=== PATIENT | male | born 1960 | race African-American/Black ===

== ENCOUNTER → 2018-07-06 | Outpatient (CLI) | payer MEDICARE, MEDICAID ==
[~2018-07-06] VITALS: Ht 172.7 cm; Wt 55.3 kg
[~2018-07-06] MED LIST: CALC500T30 PO; CYAN10002 IJ; CYANOCOBALAMIN (VITAMIN B-12) 1,000 MCG/ML VIAL IM ONE; HYDROCORTISONE SOD SUCC/PF 100 MG/2 ML VIAL. IV ONE; INFL100V IV; INFLIXIMAB IV ONE; NORMAL SALINE IV ONE; SERT100T PO; TRAZ-86 PO
[2018-07-06 09:39] VITALS: BP 103/66
[2018-07-06 10:16] VITALS: BP 107/69
[2018-07-06 10:34] VITALS: BP 99/59
== END | disposition home or self-care (01) ==
LOC: OPS 09:12
PROVIDERS: ATTEND Internal Medicine Gastroenterology
DX: K50.10 Crohn's disease of large intestine without complications (principal); E11.9 Type 2 diabetes mellitus without complications; Z79.82 Long term (current) use of aspirin
CPT/HCPCS: 96365; 96366; 96372; 96375; J1720; J1745; J3420; J7050; 96367; 96374; J7030

== ENCOUNTER → 2018-08-17 | Outpatient (CLI) | payer MEDICARE, MEDICAID ==
[~2018-08-17] VITALS: Ht 172.7 cm; Wt 55.3 kg
[2018-08-17 09:29] VITALS: BP 109/68
[2018-08-17 10:26] VITALS: BP 107/72
[2018-08-17 10:48] VITALS: BP 103/66
[2018-08-17 11:59] VITALS: BP 103/66
== END ==
LOC: OPS 09:02
PROVIDERS: ATTEND Internal Medicine Gastroenterology
DX: K50.10 Crohn's disease of large intestine without complications (principal); E11.9 Type 2 diabetes mellitus without complications; I77.810 Thoracic aortic ectasia; Z98.41 Cataract extraction status, right eye; Z79.82 Long term (current) use of aspirin; Z90.49 Acquired absence of other specified parts of digestive tract
CPT/HCPCS: 96365; 96366; 96372; 96375; J1720; J1745; J3420; J7050; 96374; J7030

== ENCOUNTER → 2018-10-11 | Outpatient (CLI) | payer MEDICARE, MEDICAID ==
[~2018-10-11] VITALS: Ht 172.7 cm; Wt 55.8 kg
[2018-10-11 11:58] VITALS: BP 96/62
[2018-10-11 12:54] VITALS: BP 109/74
[2018-10-11 13:10] VITALS: BP 120/70
== END | disposition home or self-care (01) ==
LOC: OPS 11:31
PROVIDERS: ATTEND Internal Medicine Gastroenterology
DX: K50.10 Crohn's disease of large intestine without complications (principal); E11.9 Type 2 diabetes mellitus without complications; Z79.82 Long term (current) use of aspirin; Z98.41 Cataract extraction status, right eye; Z90.49 Acquired absence of other specified parts of digestive tract
CPT/HCPCS: 96365; 96366; 96372; 96375; J1720; J1745; J3420; J7050; 96374; J7030

== ENCOUNTER → 2018-11-22 | Outpatient (CLI) | payer MEDICAID, MEDICARE ==
[~2018-11-22] VITALS: Ht 172.7 cm; Wt 55.8 kg
[~2018-11-22] MED LIST changes: -CYANOCOBALAMIN (VITAMIN B-12) 1,000 MCG/ML VIAL IM ONE; +CYANOCOBALAMIN (VITAMIN B-12) 1,000 MCG/ML VIAL IM SCH; -HYDROCORTISONE SOD SUCC/PF 100 MG/2 ML VIAL. IV ONE; +HYDROCORTISONE SOD SUCC/PF 250 MG/2 ML VIAL. IV ONE
[2018-11-22 10:09] VITALS: BP 105/69
[2018-11-22 12:29] VITALS: BP 106/69
--- NOTE | 2018-11-22 12:30 | NUR ---
SEE REMIC[employer] INFUSION RECORD FOR FREQUENT VS AND RATE CHANGES.
== END | disposition home or self-care (01) ==
LOC: OPS 09:50
PROVIDERS: ATTEND Internal Medicine Gastroenterology
DX: K50.10 Crohn's disease of large intestine without complications (principal); E11.9 Type 2 diabetes mellitus without complications; Z79.82 Long term (current) use of aspirin; Z98.41 Cataract extraction status, right eye; Z90.49 Acquired absence of other specified parts of digestive tract
CPT/HCPCS: 96365; 96366; 96372; J1745; J3420; J7050; 96374; J7030

== ENCOUNTER → 2019-01-03 | Outpatient (CLI) | payer MEDICAID, MEDICARE ==
[~2019-01-03] VITALS: Ht 172.7 cm; Wt 54.4 kg
[~2019-01-03] MED LIST changes: +CYANOCOBALAMIN (VITAMIN B-12) 1,000 MCG/ML VIAL IM ONE; -CYANOCOBALAMIN (VITAMIN B-12) 1,000 MCG/ML VIAL IM SCH
[2019-01-03 11:16] VITALS: BP 98/60
[2019-01-03 12:30] VITALS: BP 109/69
[2019-01-03 13:31] VITALS: BP 108/68
== END | disposition home or self-care (01) ==
LOC: OPS 10:55
PROVIDERS: ATTEND Internal Medicine Gastroenterology
DX: K50.818 Crohn's disease of both small and large intestine with other complication (principal); E11.9 Type 2 diabetes mellitus without complications; Z98.41 Cataract extraction status, right eye; Z90.49 Acquired absence of other specified parts of digestive tract; Z79.82 Long term (current) use of aspirin
CPT/HCPCS: 96365; 96372; 96375; J1745; J3420; J7050; 96366; J7030

== ENCOUNTER → 2019-02-14 | Outpatient (CLI) | payer MEDICARE, MEDICAID ==
[~2019-02-14] MED LIST changes: +HYDROCORTISONE SOD SUCC/PF 100 MG/2 ML VIAL. IV ONE; -HYDROCORTISONE SOD SUCC/PF 250 MG/2 ML VIAL. IV ONE
[2019-02-14 11:49] VITALS: BP 89/54
[2019-02-14 13:02] VITALS: BP 94/63
== END | disposition home or self-care (01) ==
LOC: OPS 10:08
PROVIDERS: ATTEND Internal Medicine Gastroenterology
DX: K50.818 Crohn's disease of both small and large intestine with other complication (principal); E11.9 Type 2 diabetes mellitus without complications; Z90.49 Acquired absence of other specified parts of digestive tract; Z79.82 Long term (current) use of aspirin; Z98.41 Cataract extraction status, right eye
CPT/HCPCS: 96365; 96366; 96372; 96375; J1720; J1745; J3420; J7050; 96374; J7030

== ENCOUNTER → 2019-03-28 | Outpatient (CLI) | payer MEDICARE, MEDICAID ==
[2019-03-28 10:30] VITALS: BP 112/73
== END | disposition home or self-care (01) ==
LOC: OPS 10:13
PROVIDERS: ATTEND Internal Medicine Gastroenterology
DX: K50.818 Crohn's disease of both small and large intestine with other complication (principal); E11.9 Type 2 diabetes mellitus without complications; Z79.82 Long term (current) use of aspirin; Z90.49 Acquired absence of other specified parts of digestive tract
CPT/HCPCS: 96372; 96374; 96413; J1720; J1745; J3420; J7050; 96365; 96366; 96415; J7030

== ENCOUNTER → 2019-05-09 | Outpatient (CLI) | payer MEDICARE, MEDICAID ==
[2019-03-28 10:30] VITALS: BP 112/73
== END | disposition home or self-care (01) ==
LOC: OPS 08:57
PROVIDERS: ATTEND Internal Medicine Gastroenterology
DX: K50.818 Crohn's disease of both small and large intestine with other complication (principal); E11.9 Type 2 diabetes mellitus without complications; Z90.49 Acquired absence of other specified parts of digestive tract; Z79.82 Long term (current) use of aspirin
CPT/HCPCS: 96365; 96366; 96372; 96375; J1720; J1745; J3420; J7050; 96374; J7030

== ENCOUNTER → 2019-06-20 | Outpatient (CLI) | payer MEDICARE, MEDICAID ==
[2019-06-20 09:11] VITALS: BP 107/65
[2019-06-20 10:18] VITALS: BP 100/64
[2019-06-20 10:39] VITALS: BP 93/59
== END | disposition home or self-care (01) ==
LOC: OPS 08:49
PROVIDERS: ATTEND Internal Medicine Gastroenterology
DX: K50.818 Crohn's disease of both small and large intestine with other complication (principal); E11.9 Type 2 diabetes mellitus without complications; Z90.49 Acquired absence of other specified parts of digestive tract; Z79.82 Long term (current) use of aspirin
CPT/HCPCS: 96365; 96366; 96372; 96375; J1720; J1745; J3420; J7050; 96374; J7030

== ENCOUNTER → 2019-08-01 | Outpatient (CLI) | payer MEDICARE, MEDICAID ==
[2019-08-01 09:25] VITALS: BP 108/64
[2019-08-01 11:43] VITALS: BP 109/72
[2019-08-01 12:29] LABS: ALBUMIN 3.3 g/dL (3.4-5.0); ALBUMIN/GLOBULIN RATIO 0.8 (1.0-1.7); CALCIUM 9.1 mg/dL (8.5-10.1); CREATININE 1.3 mg/dL (0.7-1.3); GFR 67.9; POTASSIUM 4.3 mmol/L (3.5-5.1); TOTAL BILIRUBIN 0.2 mg/dL (0.2-1.0); TOTAL PROTEIN 7.6 g/dL (6.4-8.2)
[2019-08-01 12:38] LABS: BASO # 0.1 x10^3/uL (0.0-0.2); BASO % 1 % (0-3); EOS % 0 % (0-3); HEMATOCRIT 42.4 % (39.0-53.0); HEMOGLOBIN 13.9 g/dL (13.0-17.5); LYMPH # 1.6 x10^3/uL (1.0-4.8); LYMPH % 16 % (24-48); MEAN CORPUSCULAR HEMOGLOBIN 32 pg (25-35); MEAN CORPUSCULAR HGB CONC 33 g/dL (31-37); MEAN CORPUSCULAR VOLUME 99 fL (79-100); MONO # 0.3 x10^3/uL (0.0-1.1); MONO % 3 % (0-9); NEUT # 8.3 x10^3/uL (1.8-7.7); NEUT % 81 % (31-73); PLATELET COUNT 276 x10^3/uL (140-400); RED CELL DISTRIBUTION WIDTH 14.2 % (11.5-14.5); WHITE BLOOD COUNT 10.3 x10^3/uL (4.0-11.0)
== END ==
LOC: OPS 08:58
PROVIDERS: ATTEND Internal Medicine Gastroenterology
DX: K50.90 Crohn's disease, unspecified, without complications (principal); E11.9 Type 2 diabetes mellitus without complications; Z90.49 Acquired absence of other specified parts of digestive tract; Z79.82 Long term (current) use of aspirin
CPT/HCPCS: 36415; 80053; 85025; 86481; 96365; 96366; 96372; 96375; J1720; J1745; J3420; J7050; 96374; J7030

== ENCOUNTER → 2019-09-10 | Outpatient (CLI) | payer MEDICARE, MEDICAID ==
[~2019-09-10] VITALS: Ht 172.7 cm; Wt 59.0 kg
[~2019-09-10] MED LIST changes: -HYDROCORTISONE SOD SUCC/PF 100 MG/2 ML VIAL. IV ONE; +HYDROCORTISONE SOD SUCC/PF 100 MG/2 ML VIAL. IVP ONE; +TRAZ-123 PO; -TRAZ-86 PO; +methylPREDNISolone SOD SUCC PF 125 MG/2 ML VIAL. IV ONE
[2019-09-10 09:32] VITALS: BP 118/67
[2019-09-10 10:15] VITALS: BP 119/72
[2019-09-10 10:30] VITALS: BP 113/67
[2019-09-10 11:00] VITALS: BP 106/68
== END | disposition home or self-care (01) ==
LOC: OPS 08:58
PROVIDERS: ATTEND Internal Medicine Gastroenterology
DX: K50.818 Crohn's disease of both small and large intestine with other complication (principal); E11.9 Type 2 diabetes mellitus without complications; Z90.49 Acquired absence of other specified parts of digestive tract; Z79.82 Long term (current) use of aspirin
CPT/HCPCS: 96365; 96366; 96372; 96375; J1720; J1745; J3420; J7050; 96374; J7030

== ENCOUNTER → 2019-10-24 | Outpatient (CLI) | payer MEDICARE, MEDICAID ==
[~2019-10-24] VITALS: Ht 172.7 cm; Wt 54.9 kg
[~2019-10-24] MED LIST changes: -methylPREDNISolone SOD SUCC PF 125 MG/2 ML VIAL. IV ONE
[2019-10-24 09:37] VITALS: BP 105/62
[2019-10-24 11:01] VITALS: BP 110/71
== END | disposition home or self-care (01) ==
LOC: OPS 09:04
PROVIDERS: ATTEND Internal Medicine Gastroenterology
DX: K50.818 Crohn's disease of both small and large intestine with other complication (principal); E11.9 Type 2 diabetes mellitus without complications; Z90.49 Acquired absence of other specified parts of digestive tract; Z79.82 Long term (current) use of aspirin
CPT/HCPCS: 96365; 96366; 96372; 96375; J1720; J1745; J3420; J7050; 96374; J7030

== ENCOUNTER → 2019-12-11 | Outpatient (CLI) | payer MEDICARE, MEDICAID ==
[~2019-12-11] VITALS: Ht 172.7 cm; Wt 54.9 kg
[~2019-12-11] MED LIST changes: -CYANOCOBALAMIN (VITAMIN B-12) 1,000 MCG/ML VIAL IM ONE; -HYDROCORTISONE SOD SUCC/PF 100 MG/2 ML VIAL. IVP ONE; -INFLIXIMAB IV ONE; -NORMAL SALINE IV ONE
[2019-12-11 11:03] VITALS: BP 129/63
[2019-12-11] MEDS: INFLIXIMAB IV ONE (11:08)
[2019-12-11] MEDS: NORMAL SALINE IV ONE (11:08)
[2019-12-11] MEDS: HYDROCORTISONE SOD SUCC/PF 100 MG/2 ML VIAL. IVP ONE (11:08)
[2019-12-11] MEDS: CYANOCOBALAMIN (VITAMIN B-12) 1,000 MCG/ML VIAL IM ONE (13:04)
[2019-12-11 13:11] VITALS: BP 121/74
== END | disposition home or self-care (01) ==
LOC: OPS 10:40
PROVIDERS: ATTEND Internal Medicine Gastroenterology
DX: K50.90 Crohn's disease, unspecified, without complications (principal); E11.9 Type 2 diabetes mellitus without complications; Z90.49 Acquired absence of other specified parts of digestive tract; Z79.82 Long term (current) use of aspirin
CPT/HCPCS: 96365; 96366; 96372; 96375; J1720; J1745; J3420; J7050; J7030

== ENCOUNTER → 2020-04-17 | Outpatient (CLI) | payer MEDICARE, MEDICAID ==
[~2020-04-17] MED LIST changes: +CYANOCOBALAMIN (VITAMIN B-12) 1,000 MCG/ML VIAL IM ONE; +HYDROCORTISONE SOD SUCC/PF 100 MG/2 ML VIAL. IV ONE; +HYDROCORTISONE SOD SUCC/PF 250 MG/2 ML VIAL. IV ONE; +INFLIXIMAB IV ONE; +NORMAL SALINE IV ONE
[2020-04-17 09:17] VITALS: BP 97/59
== END | disposition home or self-care (01) ==
LOC: OPS 08:52
PROVIDERS: ATTEND Internal Medicine Gastroenterology
DX: K50.90 Crohn's disease, unspecified, without complications (principal); Z79.82 Long term (current) use of aspirin; Z79.899 Other long term (current) drug therapy; E11.9 Type 2 diabetes mellitus without complications
CPT/HCPCS: 96365; 96366; 96372; 96375; J1720; J1745; J3420; J7050; 96374; J7030

== ENCOUNTER → 2020-05-29 | Outpatient (CLI) | payer MEDICARE, MEDICAID ==
[~2020-05-29] MED LIST changes: -HYDROCORTISONE SOD SUCC/PF 100 MG/2 ML VIAL. IV ONE; +HYDROCORTISONE SOD SUCC/PF 100 MG/2 ML VIAL. IVP ONE; -HYDROCORTISONE SOD SUCC/PF 250 MG/2 ML VIAL. IV ONE
[2020-05-29 09:29] VITALS: BP 114/61
[2020-05-29 10:12] VITALS: BP 105/67
[2020-05-29 10:29] VITALS: BP 102/56
== END | disposition home or self-care (01) ==
LOC: OPS 09:00
PROVIDERS: ATTEND Internal Medicine Gastroenterology
DX: K50.90 Crohn's disease, unspecified, without complications (principal); E11.9 Type 2 diabetes mellitus without complications; Z79.82 Long term (current) use of aspirin; Z79.899 Other long term (current) drug therapy
CPT/HCPCS: 96365; 96366; 96372; 96375; J1720; J1745; J3420; J7050; 96374; J7030

== ENCOUNTER → 2020-07-10 | Outpatient (CLI) | payer MEDICARE, MEDICAID ==
[2020-07-10 09:14] VITALS: BP 105/71
[2020-07-10 09:51] VITALS: BP 117/68
[2020-07-10 10:04] VITALS: BP 124/69
== END | disposition home or self-care (01) ==
LOC: OPS 08:58
PROVIDERS: ATTEND Internal Medicine Gastroenterology
DX: K50.90 Crohn's disease, unspecified, without complications (principal); E11.9 Type 2 diabetes mellitus without complications; Z79.82 Long term (current) use of aspirin; Z79.899 Other long term (current) drug therapy
CPT/HCPCS: 96365; 96366; 96372; 96375; J1720; J1745; J3420; J7050; 96374; J7030

== ENCOUNTER → 2020-08-21 | Outpatient (CLI) | payer MEDICARE, MEDICAID ==
[~2020-08-21] VITALS: Ht 172.7 cm; Wt 58.5 kg
[2020-08-21 09:35] VITALS: BP 106/72
[2020-08-21 11:14] VITALS: BP 114/74
== END | disposition home or self-care (01) ==
LOC: OPS 09:06
PROVIDERS: ATTEND Internal Medicine Gastroenterology
DX: K50.90 Crohn's disease, unspecified, without complications (principal); Z79.82 Long term (current) use of aspirin; Z79.899 Other long term (current) drug therapy; E11.9 Type 2 diabetes mellitus without complications
CPT/HCPCS: 96365; 96372; 96375; J1720; J1745; J3420; J7050; 96366; 96374; J7030

== ENCOUNTER → 2020-10-06 | Outpatient (CLI) | payer MEDICARE, MEDICAID ==
[2020-10-06 11:55] VITALS: BP 135/75
== END | disposition home or self-care (01) ==
LOC: OPS 10:54
PROVIDERS: ATTEND Internal Medicine Gastroenterology
DX: K50.90 Crohn's disease, unspecified, without complications (principal); E11.9 Type 2 diabetes mellitus without complications; Z79.82 Long term (current) use of aspirin; Z79.899 Other long term (current) drug therapy
CPT/HCPCS: 96365; 96366; 96372; 96375; J1720; J1745; J3420; J7050; 96374; J7030

== ENCOUNTER → 2020-11-20 | Outpatient (CLI) | payer MEDICARE, MEDICAID ==
[2020-11-20 12:22] VITALS: BP 114/77
== END | disposition home or self-care (01) ==
LOC: OPS 11:41
PROVIDERS: ATTEND Internal Medicine Gastroenterology
DX: K50.90 Crohn's disease, unspecified, without complications (principal); E11.9 Type 2 diabetes mellitus without complications; Z79.82 Long term (current) use of aspirin; Z79.899 Other long term (current) drug therapy
CPT/HCPCS: 96365; 96366; 96372; 96375; J1720; J1745; J3420; J7050; 96374; J7030

== ENCOUNTER → 2021-01-02 | Outpatient (CLI) | payer MEDICARE, MEDICAID ==
[~2021-01-02] VITALS: Ht 172.7 cm; Wt 52.6 kg
[2021-01-02 13:06] VITALS: BP 105/67
--- NOTE | 2021-01-02 14:32 | NUR ---
SEE REMIC[employer] INFUSION RECORD FOR FREQUENT VS AND RATE CHANGES.
[2021-01-02 16:09] VITALS: BP 122/73
== END ==
LOC: OPS 12:56
PROVIDERS: ATTEND Internal Medicine Gastroenterology
DX: K50.90 Crohn's disease, unspecified, without complications (principal); E11.9 Type 2 diabetes mellitus without complications; Z79.899 Other long term (current) drug therapy; Z79.82 Long term (current) use of aspirin
CPT/HCPCS: 96365; 96366; 96372; 96375; J1720; J1745; J3420; J7050; 96374; J7030

== ENCOUNTER → 2021-02-16 | Outpatient (CLI) | payer MEDICARE, MEDICAID ==
[~2021-02-16] VITALS: Ht 170.2 cm; Wt 52.6 kg
[~2021-02-16] MED LIST changes: -CYANOCOBALAMIN (VITAMIN B-12) 1,000 MCG/ML VIAL IM ONE; +CYANOCOBALAMIN (VITAMIN B-12) 1,000 MCG/ML VIAL. IM ONE
[2021-02-16 10:25] VITALS: BP 100/69
[2021-02-16 12:30] VITALS: BP 104/74
== END ==
LOC: OPS 10:03
PROVIDERS: ATTEND Internal Medicine Gastroenterology
DX: K50.90 Crohn's disease, unspecified, without complications (principal); E11.9 Type 2 diabetes mellitus without complications; Z79.82 Long term (current) use of aspirin; Z79.899 Other long term (current) drug therapy
CPT/HCPCS: 96365; 96372; 96375; J1720; J1745; J3420; J7050; 96374; J7030

== ENCOUNTER → 2021-04-07 | Outpatient (CLI) | payer MEDICARE, MEDICAID ==
[2021-04-07 15:15] VITALS: BP 138/79
[2021-04-07 15:56] VITALS: BP 98/62
== END | disposition home or self-care (01) ==
LOC: OPS 13:03
PROVIDERS: ATTEND Internal Medicine Gastroenterology
DX: K50.90 Crohn's disease, unspecified, without complications (principal); E11.9 Type 2 diabetes mellitus without complications; Z79.82 Long term (current) use of aspirin; Z79.899 Other long term (current) drug therapy
CPT/HCPCS: 96365; 96366; 96372; 96375; J1720; J1745; J3420; J7050; 96374; J7030

== ENCOUNTER → 2021-07-13 | Outpatient (CLI) | payer MEDICARE, MEDICAID ==
[2021-04-07 15:56] VITALS: BP 98/62
[~2021-07-13] MED LIST changes: -CYANOCOBALAMIN (VITAMIN B-12) 1,000 MCG/ML VIAL. IM ONE; -HYDROCORTISONE SOD SUCC/PF 100 MG/2 ML VIAL. IVP ONE; -INFLIXIMAB IV ONE; -NORMAL SALINE IV ONE
[2021-07-13 15:14] LABS: BASO % 1 % (0-3); EOS # 0.1 x10^3/uL (0.0-0.7); EOS % 1 % (0-3); HEMATOCRIT 41.4 % (39.0-53.0); HEMOGLOBIN 13.8 g/dL (13.0-17.5); LYMPH # 2.1 x10^3/uL (1.0-4.8); LYMPH % 26 % (24-48); MEAN CORPUSCULAR HEMOGLOBIN 33 pg (25-35); MEAN CORPUSCULAR HGB CONC 33 g/dL (31-37); MEAN CORPUSCULAR VOLUME 97 fL (79-100); MONO # 0.6 x10^3/uL (0.0-1.1); MONO % 8 % (0-9); NEUT # 5.1 x10^3/uL (1.8-7.7); NEUT % 65 % (31-73); PLATELET COUNT 273 x10^3/uL (140-400); RED BLOOD COUNT 4.24 x10^6/uL (4.30-5.70); RED CELL DISTRIBUTION WIDTH 14.8 % (11.5-14.5)
[2021-07-13 15:34] LABS: ALBUMIN/GLOBULIN RATIO 0.7 (1.0-1.7); CALCIUM 8.5 mg/dL (8.5-10.1); CREATININE 1.2 mg/dL (0.7-1.3); POTASSIUM 3.2 mmol/L (3.5-5.1); TOTAL BILIRUBIN 0.2 mg/dL (0.2-1.0); TOTAL PROTEIN 7.2 g/dL (6.4-8.2)
== END ==
LOC: LAB 14:54
PROVIDERS: ATTEND Internal Medicine Gastroenterology
DX: K50.80 Crohn's disease of both small and large intestine without complications (principal); E55.9 Vitamin D deficiency, unspecified; E53.8 Deficiency of other specified B group vitamins
CPT/HCPCS: 36415; 80053; 82306; 82607; 85025

== ENCOUNTER → 2021-12-21 | Outpatient (CLI) | payer MEDICARE, MEDICAID ==
[2021-04-07 15:56] VITALS: BP 98/62
[2021-12-21 14:51] LABS: BASO # 0.1 x10^3/uL (0.0-0.2); BASO % 1 % (0-3); EOS % 1 % (0-3); HEMATOCRIT 41.4 % (39.0-53.0); HEMOGLOBIN 13.8 g/dL (13.0-17.5); LYMPH % 26 % (24-48); MEAN CORPUSCULAR HEMOGLOBIN 32 pg (25-35); MEAN CORPUSCULAR HGB CONC 34 g/dL (31-37); MEAN CORPUSCULAR VOLUME 96 fL (79-100); MONO # 0.5 x10^3/uL (0.0-1.1); MONO % 6 % (0-9); NEUT # 5.1 x10^3/uL (1.8-7.7); NEUT % 66 % (31-73); PLATELET COUNT 337 x10^3/uL (140-400); RED BLOOD COUNT 4.31 x10^6/uL (4.30-5.70); RED CELL DISTRIBUTION WIDTH 15.4 % (11.5-14.5); WHITE BLOOD COUNT 7.7 x10^3/uL (4.0-11.0)
[2021-12-21 15:03] LABS: ALBUMIN 3.2 g/dL (3.4-5.0); ALBUMIN/GLOBULIN RATIO 0.7 (1.0-1.7); CREATININE 1.3 mg/dL (0.7-1.3); GFR 67.5; POTASSIUM 4.3 mmol/L (3.5-5.1); TOTAL BILIRUBIN 0.3 mg/dL (0.2-1.0); TOTAL PROTEIN 7.8 g/dL (6.4-8.2)
== END ==
LOC: LAB 14:21
PROVIDERS: ATTEND Internal Medicine Gastroenterology
DX: K50.80 Crohn's disease of both small and large intestine without complications (principal); E53.8 Deficiency of other specified B group vitamins; E55.9 Vitamin D deficiency, unspecified
CPT/HCPCS: 36415; 80053; 82306; 82607; 85025